=== PATIENT | male | born 2005 | race Two or more races ===

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

== ENCOUNTER 2023-04-28 10:54 | Emergency (ER) | payer OTHER, SELFPAY ==
--- NOTE | ~2023-04-28 | XR_ITS ---
EXAMINATION: XR FOOT, RIGHT CLINICAL INFORMATION: Second toe pain and bruising. COMPARISON: None available. TECHNIQUE: AP, lateral, and oblique views of the right foot. FINDINGS: Subtle linear lucency in the second distal phalanx, seen on the AP and lateral projections, which could represent a subtle undisplaced fracture, of indeterminate age. There is second toe soft tissue swelling. No dislocation. The remainder the bones appear intact. Alignment is anatomic. Tarsometatarsal alignment is maintained. XR/XR foot RT min 3V IMPRESSION: Linear lucency in the second distal phalanx, could represent a undisplaced fracture, of indeterminate age. Second toe soft tissue swelling. Clinically correlate. Follow-up imaging for reassessment as clinically warranted.
[2023-04-28 11:04] VITALS: BP 119/50; PULSE 82; RESP 16; TEMP 37.1; O2SAT 97; BMI 30.3
--- NOTE | 2023-04-28 11:53 | ED_ITS ---
HPI - General Adult General Chief complaint: Extremity Problem Stated complaint: ? [place] Bite Toe R Foot Time Seen by Provider: 04/28/23 11:43 Source: patient Mode of arrival: ambulatory Limitations: no limitations History of Present Illness HPI narrative: Patient is 18-year-old male presenting to the emergency department with complaint of right 2nd toe pain and swelling since Thursday. 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 He denies any injury or other trauma to the area. Denies numbness or tingling. States he is able to move toe. Has not taken any [id number] medications for his symptoms. complaint: toe pain Onset (ago): day(s) Location: right and lower extremity Radiation: non-radiation Severity: moderate Quality: aching Pain Consistency: constant Relieving factors: rest Exacerbating factors: movement Associated symptoms: denies other symptoms Treatments prior to arrival: none Related Data Previous Rx's Medication Instructions Recorded albuterol sulfate 90 mcg/actuation 1 inh inhalation QID PRN shortness 04/16/22 aerosol inhaler of breath or wheezing #8.5 grams prednisone 20 mg tablet 20 mg PO BID #10 tabs 04/16/22 acetaminophen 325 mg tablet 650 mg (2 x 325 mg) PO Q4H PRN 09/01/22 (Tylenol) pain #30 tabs amoxicillin 875 mg-potassium 1 tab PO BID #14 tabs 09/01/22 clavulanate 125 mg tablet benzocaine 20 % mucosal swab 1 appl mucous membrane TID PRN 09/01/22 mouth irritation #18 ea Allergies Allergy/AdvReac Type Severity Reaction Status Date / Time No Known Allergies Allergy Verified 04/28/23 11:04 Review of Systems Review of Systems: As per HPI. Yes all other systems are reviewed and are negative Constitutional: Constitutional: Reports as per HPI [facility] Social History Social History Advance Directives: No Physical Exam ED Vital Signs: Vital Signs - 24 hr 04/28/23 11:04 04/28/23 13:10 Temperature 98.7 F 98.3 F Pulse Rate 82 90 Respiratory Rate 16 Blood Pressure 119/50 L 141/81 H Pulse Oximetry 97 Oxygen Delivery Method Room Air BMI result Body Mass Index 30.3 Vital signs have been reviewed and appear to be correct. Blood pressure normal. Heart rate normal. Respiratory rate normal. Temperature normal. Oxygen saturation normal. Const General: cooperative, healthy appearing and no acute distress Orientation/consciousness: oriented to person, oriented to place, oriented to time and patient oriented x3 Limitations: no limitations HENMT Head: Yes normocephalic and Yes atraumatic Ears: external ears normal General nose exam: Normal external nose present Face and sinus: Yes face symmetric Mouth: oropharynx normal and moist mucous membranes Throat: Yes uvula midline Eyes Pupils: Equal, round and reactive pupils present Neck Neck: Yes normal visual inspection and Yes supple Resp Effort & Inspection: normal respiratory effort and able to speak in complete sentences Auscultation: clear to auscultation bilaterally Cardio Rate: regular rate Rhythm: regular rhythm Heart sounds: S1 normal heart sound present and S2 normal heart sound present GI Palpation (GI): Soft to palpation and nontender Auscultation: normoactive bowel sounds General: Yes no CVA tenderness Back/Spine/Pelvis Back: no CVA tenderness Skin General skin exam: elasticity normal and turgor normal Neuro General: oriented to person, oriented to place, oriented to time, patient oriented x3, moves all extremities, no focal motor deficits and CN's II-XI intact bilaterally Cranial nerves: Yes Equal, round and reactive pupils present Cognition (Neuro): normal cognition Extrem General: Yes full ROM, Yes no pedal edema and Yes no calf tenderness Right lower extremity: foot Details: normal capillary refill, tenderness Location: of another digit Location: the 2nd digit, at the PIP joint and at the DIP joint, toes with normal ROM, no edema, ecchymosis dorsal 2nd toe Details: single (entire digit), vascular exam Details: dorsalis pedis pulse present, posterior tibial pulse present and normal capillary refill and motor-sensory exam Details: two point discrimination normal and light-touch normal; no unusual warmth Psych Mental Status: mental status grossly normal Affect: normal affect Thought process: Normal thought process present Medical Decision Making Medical Decision Making MDM Narrative: Patient is 18-year-old male presenting to the emergency department with complaint of right 2nd toe pain and swelling since Thursday. On exam patient is awake, A+Ox3, VS WNL, afebrile, normal neurological exam without focal deficits, physical exam findings as above. Given reported symptoms and physical exam findings, initial differential includes contusion, fracture. Unlikely frostbite injury as patient is neurovacularly intact with normal capillary refill. X-ray notable for linear lucency in 2nd distal phalanx. My interpretation is in agreement with the radiologist's interpretation. Results discussed with patient, advised patient to ezio tape to adjacent toe, elevated while at rest, apply ice intermittently, alternate Tylenol and ibuprofen. Differential Diagnosis Differential Diagnoses: The differential diagnosis associated with the presentation includes As per [facility] Independent Interpretation I performed an independent interpretation of an: Plain X-Ray Interpretation: Possible fracture 2nd phalanx Radiology Impression Discussion of test interpretation with radiology: I have reviewed the radiologist's reading. Radiologist Impression: XR/XR foot RT min 3V IMPRESSION: Linear lucency in the second distal phalanx, could represent a undisplaced fracture, of indeterminate age. Second toe soft tissue swelling. Clinically correlate. Follow-up imaging for reassessment as clinically warranted. External Record Review External record reviewed: Inpatient record, Office record and Outpatient record Discharge Plan Discharge Clinical Impression: Toe pain, left Patient Disposition: Home, Self-Care Instructions: R.I.C.E. Treatment (ED) Additional Instructions: You have been evaluated in the emergency department today for toe pain. Your evaluation showed a possible fracture of your 2nd toe. Please rest, ice, and elevate your foot to help it heal. Use Tylenol or ibuprofen per package directions every 6 hours as needed for pain. If necessary, you can alternate these medications and take one medication every 3 hours. For instance, at noon take ibuprofen, then at 3:00 p.m. take Tylenol, then at 6:00 p.m. take ibuprofen. Return to the emergency department if you experience worsening pain, numbness, tingling, change of color in your foot, or any other concerning symptoms. Prescriptions: No Action prednisone 20 mg tablet 20 mg PO BID Qty: 10 0RF albuterol sulfate 90 mcg/actuation HFA aerosol inhaler 1 inh inhalation QID PRN (Reason: shortness of breath or wheezing) Qty: 8.5 0RF amoxicillin-pot clavulanate 875-125 mg tablet 1 tab PO BID Qty: 14 0RF acetaminophen [Tylenol] 325 mg tablet 650 mg PO Q4H PRN (Reason: pain) Qty: 30 0RF benzocaine 20 % swab 1 appl mucous membrane TID PRN (Reason: mouth irritation) Qty: 18 0RF Stand Alone Forms: Work/School Release
[2023-04-28 13:10] VITALS: BP 141/81; PULSE 90; TEMP 36.8
== END 2023-04-28 13:58 | disposition home or self-care (01) ==
PROVIDERS: Emergency Provider Emergency Medicine
DX: Z04.2 Encounter for examination and observation following work accident (principal); M79.674 Pain in right toe(s)
CPT/HCPCS: 73630; 99282; 99283

== ENCOUNTER 2023-05-28 05:41 | Emergency (ER) | payer OTHER, SELFPAY ==
[2023-05-28 05:49] VITALS: BP 140/66; PULSE 89; RESP 20; TEMP 36.2; O2SAT 98; BMI 30.6
--- NOTE | 2023-05-28 08:02 | ED.SKABFB ---
HPI - Skin/Abscess/Foreign Bdy General Chief complaint: Extremity Injury, Lower Stated complaint: lower extremity? Time Seen by Provider: 05/28/23 07:30 Source: patient Mode of arrival: ambulatory Limitations: no limitations History of Present Illness HPI narrative: 18 yo male healthy here with c/o L foot pain has blisters on great toe and small toe from working on feet all day at [employer] - no rash, yellow drainage or fevers. has not tried a dressing. jaswinder sent him in for evaluation complaint: other (blister) Onset (ago): day(s) (couple ) Tetanus up to date: yes Location: L foot Severity: mild Quality: sharp Pain Consistency: intermittent Relieving factors: rest Exacerbating factors: palpation and movement Context: other (on feet all day) Associated symptoms: denies other symptoms Treatments prior to arrival: none Related Data Previous Rx's Medication Instructions Recorded albuterol sulfate 90 mcg/actuation 1 inh inhalation QID PRN shortness 04/16/22 aerosol inhaler of breath or wheezing #8.5 grams prednisone 20 mg tablet 20 mg PO BID #10 tabs 04/16/22 acetaminophen 325 mg tablet 650 mg (2 x 325 mg) PO Q4H PRN 09/01/22 (Tylenol) pain #30 tabs amoxicillin 875 mg-potassium 1 tab PO BID #14 tabs 09/01/22 clavulanate 125 mg tablet benzocaine 20 % mucosal swab 1 appl mucous membrane TID PRN 09/01/22 mouth irritation #18 ea Allergies Allergy/AdvReac Type Severity Reaction Status Date / Time No Known Allergies Allergy Verified 04/28/23 11:04 Review of Systems Review of Systems: Constitutional : No Fever, No Chills, Cardiovascular : No Chest Pain, No SOB Respiratory : No Dyspnea Gastrointestinal : No abdominal pain Musculoskeletal : No Joint Swelling Skin : No rash, positive skin blister Neuro : No Weakness, No Numbness PMFSH Past Medical History Attestation statement: The following information was validated with the patient. Medical History No pertinent past medical history Social History Social History (Updated 05/28/23 @ 08:06 by Zoe Rodas DO) Patient Tobacco Use Status: Never used Tobacco Physical Exam Vital Signs: Vital Signs: Last Vital Signs Temp 97.2 F 05/28/23 05:49 Pulse 89 12/28/23 05:49 Resp 20 05/28/23 05:49 BP 140/66 H 05/28/23 05:49 Pulse Ox 98 05/28/23 05:49 O2 Del Method Room Air 05/28/23 05:49 BMI result Body Mass Index 30.6 Appearance: Alert. Oriented X3. No acute distress. Eyes: Pupils equal, round and reactive to light. ENT: Pharynx normal. Neck: Normal inspection. Neck supple. CVS: Pulses normal. Respiratory: No respiratory distress. Abdomen: Soft and nontender. Skin: Skin warm and dry. Normal skin color. L foot great toe blister noted but hard and firm no surrounding infection, L small toe - soft clear blister no surrounding erythema yellow drainage, heat Extremities: No lower extremity edema. Neuro: Oriented X 3. No motor deficit. No sensory deficit. Medical Decision Making Medical Decision Making MDM Narrative: 18 yo male with no sig PMH here with c/o friction blisters to the L foot from work at [employer] no signs of infection will apply mepilex dressing at this time not toxic no signs of infection did offer to aspirate small toe clear blister but he refuses instructed rest but he declined wants to work - discussed course with patient Differential Diagnosis Differential Diagnoses: The differential diagnosis associated with the presentation includes friction blister Discharge Plan Discharge Clinical Impression: Friction blister Patient Disposition: Home, Self-Care Instructions: Blister (ED) Additional Instructions: use sweat wicking socks and good supportive shoes. it will take about 3 days for the small toe blister to heal. return for increased redness, fevers, yellow drainage. apply the pink soft padded dressing to help alleviate pressure on the bilster. Prescriptions: No Action prednisone 20 mg tablet 20 mg PO BID Qty: 10 0RF albuterol sulfate 90 mcg/actuation HFA aerosol inhaler 1 inh inhalation QID PRN (Reason: shortness of breath or wheezing) Qty: 8.5 0RF amoxicillin-pot clavulanate 875-125 mg tablet 1 tab PO BID Qty: 14 0RF acetaminophen [Tylenol] 325 mg tablet 650 mg PO Q4H PRN (Reason: pain) Qty: 30 0RF benzocaine 20 % swab 1 appl mucous membrane TID PRN (Reason: mouth irritation) Qty: 18 0RF Stand Alone Forms: Work/School Release
--- NOTE | 2023-05-28 09:42 | PC.NURSE ---
pt a&o x4, pleasant, calm, and cooperative. pt c/o blister to left great toe and left little toe. education and discharge instructions given. rr even/unlabored.
== END 2023-05-28 09:43 | disposition home or self-care (01) ==
PROVIDERS: Emergency Provider Emergency Medicine
DX: S90.822A Blister (nonthermal), left foot, initial encounter (principal); Y93.01 Activity, walking, marching and hiking; Y93.9 Activity, unspecified; Y92.9 Unspecified place or not applicable; Y99.0 Civilian activity done for income or pay
CPT/HCPCS: 99283; 99284